=== PATIENT | male | born 1930 | race Caucasian/White ===

== ENCOUNTER 2017-07-04 15:20 | Emergency (ER) | payer MEDICARE, BC ==
--- NOTE | ~2017-07-04 | ER ---
PATIENT'S NAME: DARRON LOCKETT [facility] AGE: 86 Y [address] ROOM: [place] [address] LOCATION: [facility] ADMIT DATE: 07/04/2017 ER/Outpatient Report DISCHARGE DATE: 07/04/2017 FAMILY PHYSICIAN: Leandro Enriquez MD ATTENDING PHYSICIAN: Shon Espino Time of Arrival: 1520 hours. Time of Evaluation: 1526 hours. CHIEF COMPLAINT: Fall, skin tear to left arm. HISTORY OF PRESENT ILLNESS: This is an 86-year-old male who suffered a ground level fall approximately 45 minutes prior to arrival. The patient states he tripped over his garden hose and suffered a skin tear to his left elbow. The patient denies hitting his head. He has had no nausea or vomiting. No loss of consciousness. He denies any neck or back pain. He states he does not know when his last tetanus shot was. He denies any other problems at this time. ALLERGIES: NO KNOWN ALLERGIES. MEDICATIONS: Please see medication list nurse's notes. PAST MEDICAL HISTORY: Bradycardia and hypertension. PAST SURGERIES: Lumpectomy. SOCIAL HISTORY: Denies smoking, drug, or alcohol use. REVIEW OF SYSTEMS: All systems reviewed and negative with the exception of those discussed in the HPI. PHYSICAL EXAMINATION: VITAL SIGNS: Height 6 feet and 5 inches stated, weight 90.7 kg taken, blood pressure is 138/76, pulse 44, respirations 16, temperature 98.4 degrees with the temporal scanner, saturation is 96% on room air. Sha Coma Score is 15. GENERAL: Alert, calm, well-developed, 86-year-old, in no acute distress. PATIENT'S NAME: DARRON LOCKETT [facility] AGE: 86 Y [address] ROOM: [place] [address] LOCATION: [facility] ADMIT DATE: 07/04/2017 ER/Outpatient Report DISCHARGE DATE: 07/04/2017 FAMILY PHYSICIAN: Leandro Enriquez MD ATTENDING PHYSICIAN: Shon Espino HEENT: Head: Normocephalic. Eyes: Pupils are equal and reactive to light. He does display moist mucous membranes. LUNGS: Clear to auscultation bilaterally. No wheezes or crackles. HEART: Bradycardic. Normal rhythm. EXTREMITIES: No clubbing or cyanosis. He has full range of motion of all limbs. MUSCULOSKELETAL: He has no tenderness over his cervical, thoracic, or lumbar spine. SKIN: He has a large skin tear noted to the left forearm. It is not actively bleeding at this time. LABORATORY DATA AND X-RAYS: None were done. IMPRESSION: Large skin tear to the left forearm. ASSESSMENT AND PLAN: We did place saline gauze to the area to cleanse it. We did cleanse the skin tear area thoroughly and pulled the loose skin over the open wound and place Vaseline gauze to the elbow. The patient did tolerate this well. We did update him on his tetanus shot and we will dismiss him to home. Advised him to change his dressing once a day. We will send him home with the wound care handout. He may take Tylenol as needed and follow up with his primary care physician in 7 to 10 days or sooner if anything worsens. The patient and patient's understand and agree with care. CRYSTAL GARCIA PA-C FOR MD JOSE MANUEL ALVARADO/geovanna /[id number] d: 07/04/17 1835 t: 07/11/17 1019, OUTPATIENT REPORT
== END 2017-07-04 16:05 | disposition disaster alternative care site (69) ==
LOC: GACC 15:20
DX: S51.812A Laceration without foreign body of left forearm, initial encounter (principal); I10 Essential (primary) hypertension; Z79.82 Long term (current) use of aspirin; Z79.899 Other long term (current) drug therapy; Z98.890 Other specified postprocedural states; Z23 Encounter for immunization; W01.198A Fall on same level from slipping, tripping and stumbling with subsequent striking against other object, initial encounter